=== PATIENT | male | born 1995 | race Caucasian/White ===

== ENCOUNTER 2019-03-31 19:00 | Emergency (ER) | payer OTHER ==
[~2019-03-31] VITALS: Ht 177.8 cm; Wt 115.7 kg
[2019-03-31 19:39] VITALS: Ht 177.8 cm; Wt 115.7 kg
[2019-03-31 20:50] VITALS: BP 135/70
== END 2019-03-31 20:50 | disposition home or self-care (01) ==
LOC: ED 19:00
DX: S93.402A Sprain of unspecified ligament of left ankle, initial encounter (principal); J45.909 Unspecified asthma, uncomplicated; X50.1XXA Overexertion from prolonged static or awkward postures, initial encounter; Y93.67 Activity, basketball; Y92.89 Other specified places as the place of occurrence of the external cause; Y99.8 Other external cause status